=== PATIENT | female | born 1970 | race Caucasian/White ===

== ENCOUNTER 2017-08-27 16:18 | Emergency (ER) | payer BC, OTHER ==
[~2017-08-27] VITALS: Ht 167.6 cm; Wt 110.2 kg
[2017-08-27] MEDS ORDERED: MORPHINE SULFATE 2 MG/ML SYR IV STA (18:22)
[2017-08-27] MEDS ORDERED: ONDANSETRON HCL INJ 2 MG/ML VIAL IV STA (18:22)
[2017-08-27 18:30] LABS: BASOPHILS % 0.4 % (0.0-1.0); EOSINOPHILS # (AUTO) 0.2 (0.0-0.4); EOSINOPHILS % 2.5 % (0.0-6.0); HEMATOCRIT 36.4 % (34.2-44.1); HEMOGLOBIN 12.3 g/dL (12.0-16.0); LYMPHOCYTES # (AUTO) 3.1 (1.0-3.2); LYMPHOCYTES % 34.5 % (18.0-39.1); MEAN CORPUSCULAR HEMOGLOBIN 30.4 pg (28-32); MEAN CORPUSCULAR HGB CONC 33.8 g/dL (31-35); MEAN CORPUSCULAR VOLUME 90.1 fL (81-99); MONOCYTES # (AUTO) 0.5 (0.2-0.8); MONOCYTES % 5.6 % (4.4-11.3); NEUTROPHILS # (AUTO) 5.1 (2.1-6.9); NEUTROPHILS % 56.6 % (38.7-80.0); PLATELET COUNT 364 x10e3/uL (140-360); RED BLOOD COUNT 4.04 x10e6/uL (3.6-5.1); RED CELL DISTRIBUTION WIDTH 13.9 % (11.7-14.4)
[2017-08-27] MEDS ORDERED: SODIUM CHLORIDE 0.9% 1000ML 1,000 ML IV SCH (18:30)
[2017-08-27 18:33] LABS: CLARITY,URINE SL CLOUDY (CLEAR); COLOR,URINE YELLOW (YELLOW); KETONES,URINE TRACE (NEGATIVE); LEUKOCYTE ESTERASE ,URINE NEGATIVE (NEGATIVE); NITRITE,URINE NEGATIVE (NEGATIVE); PROTEIN,URINE DIPSTICK 1+ (NEGATIVE); URINE UROBILINOGEN 0.2 mg/dL (0.2 - 1)
[2017-08-27 18:34] LABS: BILIRUBIN,URINE NEGATIVE (NEGATIVE)
[2017-08-27 18:44] LABS: ALANINE AMINOTRANSFERASE 48 IU/L (0-55); ALBUMIN 3.5 g/dL (3.5-5.0); ALBUMIN/GLOBULIN RATIO 0.9 (0.8-2.0); ALKALINE PHOSPHATASE 78 IU/L (40-150); AMYLASE 39 U/L (25-125); ANION GAP 12.4 mmol/L (8-16); BLOOD UREA NITROGEN 6 mg/dL (7-26); BUN/CREATININE RATIO 7 (6-25); CALCIUM 9.1 mg/dL (8.4-10.2); CARBON DIOXIDE 28 mmol/L (22-29); CHLORIDE 103 mmol/L (98-107); CREATININE, SERUM 0.84 mg/dL (0.57-1.11); EST GLOMERULAR FILTRATION RATE > 60 ML/MIN (60-); GLUCOSE 143 mg/dL (74-118); LIPASE 21 U/L (8-78); POTASSIUM 3.4 mmol/L (3.5-5.1); SODIUM 140 mmol/L (136-145)
[2017-08-27 18:45] LABS: BACTERIA,URINE MODERATE /HPF; EPITHELIAL CELLS,URINE MANY /LPF; MUCUS,URINE MANY (RARE)
[2017-08-27] MEDS ORDERED: SODIUM CHLORIDE 0.9% 50ML 50 ML ONE (20:00)
[2017-08-27] MEDS ORDERED: IOPAMIDOL 370 MG/ML 200 ML INFUS..BTL INJ ONE (20:01)
--- NOTE | 2017-08-27 20:44 | Diagnostic Imaging Report ---
CT Abdomen And Pelvis with Intravenous Contrast INDICATION: Right lower TECHNIQUE: Thin collimation axial images obtained from the diaphragm to the level of the pubic symphysis following the uneventful administration of 100 cc of low osmolar, nonionic intravenous contrast. RADIATION DOSE: Total DLP: 845.8 mGy*cm Estimated effective dose: (DLP x 0.015 x size factor) mSv CTDIvol has been reviewed. It is below the limits set by the Radiation Protocol Committee (RPC). COMPARISON: None. ABDOMEN FINDINGS: Lung Bases: Clear. The visualized portions of the mediastinum are normal.. Liver: Diffuse hypoattenuation consistent with steatosis. The right lobe measures 21 cm in length. No evidence for mass. Gallbladder: Absent. No biliary ductal dilatation. Pancreas: Normal attenuation without mass or ductal dilatation. Spleen: Normal in size. No evidence of mass.. Adrenal Glands: No evidence for mass. Kidneys: Right: Normal enhancement. No soft tissue mass. No hydronephrosis. Left: Normal enhancement. No soft tissue mass. No hydronephrosis. Lymph Nodes: No lymphadenopathy. Aorta: Normal in diameter PELVIS FINDINGS: Bowel: Stomach: Normal. Small Bowel: Normal in caliber with normal wall thickness. Large Bowel: A few scattered diverticula in the sigmoid colon. No associated inflammation. Mild to moderate amount of stool in the right colon. Appendix: Normal appendix. Bladder: Normal. The uterus is present and normal in morphology. No adnexal mass. No free fluid or fluid collection. Bones: Unremarkable for age. IMPRESSION: 1. Hepatic steatosis and hepatomegaly. 2. Cholecystectomy. Normal biliary tree. 3. Diverticulosis coli. No evidence for bowel obstruction or inflammation. Normal appendix. Signed by: Dr. Cole Elena MD on 08/27/2017 8:41 PM
== END 2017-08-27 22:09 | disposition home or self-care (01) ==
LOC: ER 16:18
DX: R10.31 Right lower quadrant pain (principal); R11.0 Nausea; R19.7 Diarrhea, unspecified; K59.00 Constipation, unspecified
CPT/HCPCS: 36415; 74177; 80053; 81001; 82150; 83605; 83690; 84702; 85025; 93005; 99284; J2270; J2405; J7030; Q9967

== ENCOUNTER 2018-09-11 20:24 | Emergency (ER) | payer OTHER ==
[~2018-09-11] VITALS: Ht 167.6 cm; Wt 110.2 kg
--- OUTSIDE RECORDS SUMMARY | 2018-09-11 20:27 | XMS REPORT ---
Author [facility] Address Unknown Phone Unavailable Care Team Providers Care Policeman Name Role Phone Cindy BROWNE Unavailable Unavailable Payers Payer Name Policy Type Policy Number Effective Date Expiration Date Problems This patient has no known problems. Allergies, Adverse Reactions, Alerts Allergy Name Allergy Type Status Severity Reaction(s) Onset Date Inactive Date Treating Clinician Comments hydrocodone bit DA Active U 2016-07-17 00:00:00 acetaminophen DA Active U 2016-07-17 00:00:00 Medications This patient has no known medications. Results Test Description Test Time Test Comments Text Results Atomic Results Result Comments SURGICAL SPECIMENS 2018-09-11 09:48:00 RUN DATE: 09/11/18 [facility] *LIVE* PAGE 1 RUN TIME: 947 Specimen Inquiry RUN USER: INTERFACE PATIENT: TESHA REEVES LOC: MIGDALIA #: [id number] AGE/SX: 47/F ROOM: [facility] RE09/08/18REG DR: Estrellita Paris : 74 BED: 1 DIS: 09/09/18 STATUS: DIS Lissy TLOC: SPEC #: [id number] RECD: 09/09/18 STATUS: SOUCindy RE #: [id number] JUANITO: 09/09/[address]: Estrellita Paris MD ENTERED: 09/11/18 SP TYPE: SURG SPEC OTHR DR: No Primary or Family PhysicianORDERED: GM LEVEL 4 CODES: [id number] - UTERUS, NOS COPIES TO: No Primary or Family Physician Estrellita Paris MD [address] [place] [address] PROCEDURES: GM LEVEL 4 (Incomplete) TISSUES: 1. UTERUS, NOS - Uterus, cervix, bilateral tubes and ovar FINAL DIAGNOSIS Cervix uteri: Chronic cervicitis, squamous metaplasia, nabothian cysts. Endometrium: Proliferative phase. Corpus uteri: Leiomyomata, fibrous serosal adhesions. Adnexa, bilateral: Fibrous adhesions; small serous cysts. GROSS AND MICROSCOPIC GROSS EXAMINATION: Received the specimen as designated above and it consists of a uterus with attached left adnexa and a ovary and tube that weighs 264 g together. The ovary measures 3.5 x 4 x 1.5 cm (A)-(B), attached left ovary 2.7 cm, left tube 4.5 x 1.4 cm, uterus 11.7 x 8.5 x 7 cm, endometrium 0.4 cm, myometrium 2.9 cm with multiple randolph- white nodules measure up to 1.1 cm. (C)-(I). MICROSCOPIC EXAMINATION: The ectocervical mucosa has normal maturation. The endocervical mucosa has nabothian cysts, areas of squamous metaplasia and associated chronic inflammation. The endometrial glands are tubular and the stroma is cellular with mitosis in both the glands and the stroma. The myometrial nodule(s) are composed of bundles of smooth muscle cells CONTINUED ON NEXT PAGE RUN DATE: 09/11/18 [facility] *LIVE* PAGE 2 RUN TIME: 947 Specimen Inquiry RUN USER: INTERFACE SPEC #: [id number] PATIENT: TESHA REEVES #[id number] (Continued) GROSS AND MICROSCOPIC (Continued) with no significant nuclear atypia or mitotic activity. The serosa shows fibrous adhesions. The bilateral adnexa reveal fibrous adhesions and small serous cysts. POST-OP DIAGNOSIS Abnormal uterine bleeding, fibroids, pelvic pain PRE-OP DIAGNOSIS Abnormal uterine bleeding, fibroids, pelvic pain---- Signed SIGNATURE ON FILE Nica Beltran MD 09/11/18 0948 END OF REPORT VITAMIN B12 2018-09-11 04:07:00 VITAMIN B12 (test code=VITB12) 593 pg/mL 193-986 [id number] 04:07:00* Test Item Value Reference Range Comments TESTOSTERONE (test code=TEST) <3 ng/dL 8-48 Performed At: [facility] [place] [address] [id number] Gee MD Ph:[phone] VITAMIN D [id number] 04:07:00* Test Item Value Reference Range Comments VITAMIN D 25-HYDROXY (test code=VITD25) 26.4 ng/mL 30-100 [id number] 04:07:00* Test Item Value Reference Range Comments ESTRADIOL (test code=ESTRA) 12.0 pg/mL () Adult Female: Follicular phase 12.5 - 166.0 Ovulation phase 85.8 - 498.0 Luteal phase 43.8 - 211.0 Postmenopausal <6.0 - 54.7 1st trimester 215.0 - >4300.0 Girls (1-10 years) 6.0 - 27.0Roche ECLIA methodologyPerformed At: [facility] [address] [id number] Gee MD Ph:[phone] FOLLICLE STIMULATING [id number] 04:07:00* Test Item Value Reference Range Comments FOLLICLE STIMULATING HORMONE (test code=FSH) 13.4 mIU/mL () Adult Female: Follicular phase 3.5 - 12.5 Ovulation phase 4.7 - 21.5 Luteal phase 1.7 - 7.7 Postmenopausal 25.8 - 134.8Performed At: [address] [id number] Gee MD Ph:[phone] LUTEINIZING [id number] 04:07:00* Test Item Value Reference Range Comments LUTEINIZING HORMONE (test code=LH) 17.0 mIU/mL () Adult Female: Follicular phase 2.4 - 12.6 Ovulation phase 14.0 - 95.6 Luteal phase 1.0 - 11.4 Postmenopausal 7.7 - 58.5Performed At: [address] [id number] Gee MD Ph:[phone] VITAMIN [id number] 16:28:00* Test Item Value Reference Range Comments VITAMIN B12 (test code=VITB12) 593 pg/mL 193-986 [id number] 16:28:00* Test Item Value Reference Range Comments TESTOSTERONE (test code=TEST) VITAMIN D [id number] 16:28:00* Test Item Value Reference Range Comments VITAMIN D 25-HYDROXY (test code=VITD25) 26.4 ng/mL 30-100 VITAMIN [id number] 16:14:00* Test Item Value Reference Range Comments VITAMIN B12 (test code=VITB12) pg/mL 193-986 [id number] 16:14:00* Test Item Value Reference Range Comments TESTOSTERONE (test code=TEST) VITAMIN D 37-[id number] 16:14:00* Test Item Value Reference Range Comments VITAMIN D 25-HYDROXY (test code=VITD25) 26.4 ng/mL 30-100 HGBA1C%2018-09-09 16:01:00* Test Item Value Reference Range Comments HGBA1C% (test code=HGBA1C%) 5.5 %A1C 4.8-6.0 BASIC METABOLIC [id number] 11:23:00* Test Item Value Reference Range Comments SODIUM (test code=NA) 138 mEq/L 134-147 POTASSIUM (test code=K) 3.6 mEq/L 3.4-5.0 CHLORIDE (test code=CL) 106 mEq/L 100-108 CARBON DIOXIDE (test code=CO2) 26 mEq/L 21-33 ANION GAP (test code=GAP) 10 0-20 GLUCOSE (test code=GLU) 187 mg/dL 70-110 BLOOD UREA NITROGEN (test code=BUN) 10 mg/dL 7-18 GLOMERULAR FILTRATION RATE (test code=GFR) 67.7 95-105 Units of measure=ml/min/1.73 m2 CREATININE (test code=CREAT) 0.9 mg/dL 0.6-1.3 CALCIUM (test code=CA) 7.5 mg/dL 8.0-10.5 CBC W/AUTO [id number] 11:14:00* Test Item Value Reference Range Comments WHITE BLOOD CELL (test code=WBC) 13.41 x10 3/uL 4.5-11.0 RED BLOOD CELL (test code=RBC) 3.02 x10 6/uL 3.54-5.02 HEMOGLOBIN (test code=HGB) 9.3 g/dL 11.0-15.0 HEMATOCRIT (test code=HCT) 28.1 % 33.0-45.0 MEAN CELL VOLUME (test code=MCV) 93.0 fL 81.0-99.0 MEAN CELL HGB (test code=MCH) 30.8 pg 27.0-33.0 MEAN CELL HGB CONCETRATION (test code=MCHC) 33.1 g/dL 33.0-37.0 RED CELL DISTRIBUTION WIDTH CV (test code=RDW) 13.0 % 11.5-14.5 RED CELL DISTRIBUTION WIDTH SD (test code=RDW-SD) 43.8 fL 37.0-54.0 PLATELET COUNT (test code=PLT) 328 x10 3/uL 150-400 MEAN PLATELET VOLUME (test code=MPV) 9.8 fL 7.0-9.0 NEUTROPHIL % (test code=NT%) 67.7 % 56.0-77.0 IMMATURE GRANULOCYTE % (test code=IG%) 0.7 % 0.0-2.0 LYMPHOCYTE % (test code=LY%) 25.3 % 14.0-32.0 MONOCYTE % (test code=MO%) 6.2 % 4.8-9.0 EOSINOPHIL % (test code=EO%) 0.0 % 0.3-3.7 BASOPHIL % (test code=BA%) 0.1 % 0.0-2.0 NUCLEATED RBC % (test code=NRBC%) 0.0 % 0-0 NEUTROPHIL # (test code=NT#) 9.08 x10 3/uL 2.0-7.6 IMMATURE GRANULOCYTE # (test code=IG#) 0.09 x10 3/uL 0.00-0.03 LYMPHOCYTE # (test code=LY#) 3.39 x10 3/uL 1.0-3.8 MONOCYTE # (test code=MO#) 0.83 x10 3/uL 0.1-0.8 EOSINOPHIL # (test code=EO#) 0.00 x10 3/uL 0.0-0.2 BASOPHIL # (test code=BA#) 0.02 x10 3/uL 0.0-0.2 NUCLEATED RBC # (test code=NRBC#) 0.00 x10 3/uL 0.0-0.1 MANUAL DIFF REQUIRED (test code=MDIFF) NO COMPREHENSIVE METABOLIC [id number] 15:03:00* Test Item Value Reference Range Comments SODIUM (test code=NA) 141 mEq/L 134-147 POTASSIUM (test code=K) 3.6 mEq/L 3.4-5.0 CHLORIDE (test code=CL) 106 mEq/L 100-108 CARBON DIOXIDE (test code=CO2) 30 mEq/L 21-33 ANION GAP (test code=GAP) 9 0-20 GLUCOSE (test code=GLU) 102 mg/dL 70-110 BLOOD UREA NITROGEN (test code=BUN) 7 mg/dL 7-18 GLOMERULAR FILTRATION RATE (test code=GFR) 90.5 95-105 Units of measure=ml/min/1.73 m2 CREATININE (test code=CREAT) 0.7 mg/dL 0.6-1.3 TOTAL PROTEIN (test code=PROT) 8.0 g/dL 6.4-8.2 ALBUMIN (test code=ALB) 3.50 g/dL 3.4-5.0 CALCIUM (test code=CA) 8.9 mg/dL 8.0-10.5 BILIRUBIN TOTAL (test code=BILT) 0.20 mg/dL 0.0-1.0 SGOT/AST (test code=AST) 56 IUnit/L 15-37 SGPT/ALT (test code=ALT) 54 IUnit/L 15-65 ALKALINE PHOSPHATASE TOTAL (test code=ALKP) 86 IUnit/L 20-125 HCG SERUM [id number] 15:03:00* Test Item Value Reference Range Comments HCG SERUM QUAL (test code=HCGQL) SERUM NEGATIVE NEGATIVE COMPREHENSIVE METABOLIC [id number] 14:54:00* Test Item Value Reference Range Comments SODIUM (test code=NA) 141 mEq/L 134-147 POTASSIUM (test code=K) 3.6 mEq/L 3.4-5.0 CHLORIDE (test code=CL) 106 mEq/L 100-108 CARBON DIOXIDE (test code=CO2) 30 mEq/L 21-33 ANION GAP (test code=GAP) 9 0-20 GLUCOSE (test code=GLU) 102 mg/dL 70-110 BLOOD UREA NITROGEN (test code=BUN) 7 mg/dL 7-18 GLOMERULAR FILTRATION RATE (test code=GFR) 90.5 95-105 Units of measure=ml/min/1.73 m2 CREATININE (test code=CREAT) 0.7 mg/dL 0.6-1.3 TOTAL PROTEIN (test code=PROT) g/dL 6.4-8.2 ALBUMIN (test code=ALB) 3.50 g/dL 3.4-5.0 CALCIUM (test code=CA) 8.9 mg/dL 8.0-10.5 BILIRUBIN TOTAL (test code=BILT) mg/dL 0.0-1.0 SGOT/AST (test code=AST) 56 IUnit/L 15-37 SGPT/ALT (test code=ALT) 54 IUnit/L 15-65 ALKALINE PHOSPHATASE TOTAL (test code=ALKP) IUnit/L 20-125 HCG SERUM [id number] 14:54:00* Test Item Value Reference Range Comments HCG SERUM QUAL (test code=HCGQL) SERUM NEGATIVE NEGATIVE PROTHROMBIN [id number] 14:44:00* Test Item Value Reference Range Comments PROTHROMBIN TIME PATIENT (test code=PTP) 11.3 SECONDS 9.3-12.9 INTERNATIONAL NORMAL RATIO (test code=INR) 1.0 0.8-1.2 TARGET INR BY INDICATION Indication INR1. Prophylaxis of venous thrombosis 2.0 - 3.0 (orthopedic surgery), Prophylaxis of venous thrombosis (other than high-risk surgery), Treatment of Deep Vein Thrombosis/Pulmonary Embolism, Prevention of systemic embolism - Tissue heart valves, Acute Myocardial Infarction (to prevent systemic embolism), Valvular heart disease, Atrial Fibrillation, Bileaflet mechanical valve in aortic position.2. Mechanical prosthetic valves (high risk), 2.5 - 3.5 Presence of Lupus Anticoagulant or Antiphospholipid Antibodies, Prevention of systemic embolism - Acute Myocardial Infarction (to prevent recurrent infarct). THROMBOPLASTIN TIME [id number] 14:44:00* Test Item Value Reference Range Comments THROMBOPLASTIN TIME PARTIAL (test code=PTT) 32.5 Seconds 25.0-39.5 Therapeutic Range: 50.4 - 88.3 Seconds Effective 06/08/2018 COMPREHENSIVE METABOLIC [id number] 14:42:00* Test Item Value Reference Range Comments SODIUM (test code=NA) mEq/L 134-147 POTASSIUM (test code=K) mEq/L 3.4-5.0 CHLORIDE (test code=CL) mEq/L 100-108 CARBON DIOXIDE (test code=CO2) mEq/L 21-33 ANION GAP (test code=GAP) 0-20 GLUCOSE (test code=GLU) mg/dL 70-110 BLOOD UREA NITROGEN (test code=BUN) mg/dL 7-18 GLOMERULAR FILTRATION RATE (test code=GFR) 95-105 CREATININE (test code=CREAT) mg/dL 0.6-1.3 TOTAL PROTEIN (test code=PROT) g/dL 6.4-8.2 ALBUMIN (test code=ALB) g/dL 3.4-5.0 CALCIUM (test code=CA) mg/dL 8.0-10.5 BILIRUBIN TOTAL (test code=BILT) mg/dL 0.0-1.0 SGOT/AST (test code=AST) IUnit/L 15-37 SGPT/ALT (test code=ALT) IUnit/L 15-65 ALKALINE PHOSPHATASE TOTAL (test code=ALKP) IUnit/L 20-125 HCG SERUM [id number] 14:42:00* Test Item Value Reference Range Comments HCG SERUM QUAL (test code=HCGQL) SERUM NEGATIVE NEGATIVE CBC W/AUTO [id number] 14:25:00* Test Item Value Reference Range Comments WHITE BLOOD CELL (test code=WBC) 8.05 x10 3/uL 4.5-11.0 RED BLOOD CELL (test code=RBC) 4.23 x10 6/uL 3.54-5.02 HEMOGLOBIN (test code=HGB) 13.0 g/dL 11.0-15.0 HEMATOCRIT (test code=HCT) 38.1 % 33.0-45.0 MEAN CELL VOLUME (test code=MCV) 90.1 fL 81.0-99.0 MEAN CELL HGB (test code=MCH) 30.7 pg 27.0-33.0 MEAN CELL HGB CONCETRATION (test code=MCHC) 34.1 g/dL 33.0-37.0 RED CELL DISTRIBUTION WIDTH CV (test code=RDW) 12.5 % 11.5-14.5 RED CELL DISTRIBUTION WIDTH SD (test code=RDW-SD) 40.7 fL 37.0-54.0 PLATELET COUNT (test code=PLT) 362 x10 3/uL 150-400 MEAN PLATELET VOLUME (test code=MPV) 9.6 fL 7.0-9.0 NEUTROPHIL % (test code=NT%) 43.3 % 56.0-77.0 IMMATURE GRANULOCYTE % (test code=IG%) 0.4 % 0.0-2.0 LYMPHOCYTE % (test code=LY%) 47.6 % 14.0-32.0 MONOCYTE % (test code=MO%) 5.6 % 4.8-9.0 EOSINOPHIL % (test code=EO%) 2.2 % 0.3-3.7 BASOPHIL % (test code=BA%) 0.9 % 0.0-2.0 NUCLEATED RBC % (test code=NRBC%) 0.0 % 0-0 NEUTROPHIL # (test code=NT#) 3.49 x10 3/uL 2.0-7.6 IMMATURE GRANULOCYTE # (test code=IG#) 0.03 x10 3/uL 0.00-0.03 LYMPHOCYTE # (test code=LY#) 3.83 x10 3/uL 1.0-3.8 MONOCYTE # (test code=MO#) 0.45 x10 3/uL 0.1-0.8 EOSINOPHIL # (test code=EO#) 0.18 x10 3/uL 0.0-0.2 BASOPHIL # (test code=BA#) 0.07 x10 3/uL 0.0-0.2 NUCLEATED RBC # (test code=NRBC#) 0.00 x10 3/uL 0.0-0.1 MANUAL DIFF REQUIRED (test code=MDIFF) NO - XR CHEST 2 [id number] 13:51:00 FAX: Devyn Siddiqi- [phone] [place]: St: PRE FAX: Estrellita Swift [phone] Name: TESHA REEVES [facility] : 1970 Age/S: 47/F [address] [place] [address] Unit #: [id number] Loc: [place] [address] Phys: Devyn Rollins Acct: [id number] Dis Date: Status: PRE [facility] [place]ONE #: [phone] Exam Date: 09/07/2018 1352 FAX #: [phone] Reason: PRE-OP TLH EXAMS: CPT CODE: [id number] XR CHEST 2 V 40218 CHEST RADIOGRAPHS - PA AND LATERAL: COMPARISON: None CLINICAL HISTORY: PRE-OP TLH The cardiopericardial silhouette is within normal limits. Lungs are clear. No vascular congestion or pneumothorax. IMPRESSION: No acute pulmonary abnormality. at 1350 Reported and signed by: Zane Anton M.D. CC: Devyn Paris MD Technologist: Morena Goodrich, RT(R) Trnwvfarshad Date/Time/By: 09/07/2018 (6598) : By: [email or web address] Orig Print D/T: S: 09/07/2018 (2023) PAGE [address] ABDOMEN/PELVIS [id number] 20:38:00 [place] [address] Patient Name: TESHA REEVES MR #: [id number] : 1970 Age/Sex: 46/F Req #: [id number] Adm Physician: Ordered by: KUMAR PEREZ NURSE SUBSTANCE ABUSE Report #: [id number] Location: ER Room/Bed: Procedure: [id number] CT/CT ABDOMEN/PELVIS W Exam Date: 08/27/17 Exam Time: 1944 ST ATUS: Signed CT Abdomen And Pelvis with Intravenous Contrast INDICATION: Right lower TECHNIQUE: Thin collimation axial images obtained from the franklin phragm to the level of the pubic symphysis following the uneventful administra tion of 100 cc of low osmolar, nonionic intravenous contrast. RADIATION DOSE: Total DLP: 845.8 mGy*cm Estimated effective dose: (DLP x 0. 015 x size factor) mSv CTDIvol has been reviewed. It is below the limits set by the Radiation Protocol Committee (RPC). COMPARISON: None. AB DOMEN FINDINGS: Lung Bases: Clear. The visualized portions of the mediasti num are normal.. Liver: Diffuse hypoattenuation consistent with steatosis. The right lobe measures 21 cm in length. No evidence for mass. Gallbladd er: Absent. No biliary ductal dilatation. Pancreas: Normal attenuation with out mass or ductal dilatation. Spleen: Normal in size. No evidence of mass .. Adrenal Glands: No evidence for mass. Kidneys: Right: Normal enhancement. No soft tissue mass. No hydronephrosis. Left: Normal enhanc ement. No soft tissue mass. No hydronephrosis. Lymph Nodes: No lymphadeno roman. Aorta: Normal in diameter PELVIS FINDINGS: Bowel: St omach: Normal. Small Bowel: Normal in caliber with normal wall thickness. Large Bowel: A few scattered diverticula in the sigmoid colon. No associated inflammation. Mild to moderate amount of stool in the right colon. Appendix: N ormal appendix. Bladder: Normal. The uterus is present and normal in m orphology. No adnexal mass. No free fluid or fluid collection. Bones: Unremarkable for age. IMPRESSION: 1. Hepatic steatosis and hepatomeg guru. 2. Cholecystectomy. Normal biliary tree. 3. Diverticulosis coli. No e vidence for bowel obstruction or inflammation. Normal appendix. Signed by : Dr. Cheri Elena MD on 08/27/2017 8:41 PM Dictated By: CHERI SANCHES MD 40 Trans cribed By: FORTUNATO on 08/27/172040 COPY TO: KUMAR PEREZ NP
--- NOTE | 2018-09-11 22:13 | Diagnostic Imaging Report ---
EXAMINATION: Head CT without contrast. HISTORY:Headache, dizziness and vomiting. COMPARISON:None. TECHNIQUE: Multidetector axial images were obtained from the foramen magnum to the vertex without contrast. The images were reconstructed using brain and bone algorithms. Thin section brain images were reformatted into coronal and sagittal planes. Dose modulation, iterative reconstruction, and/or weight based adjustment of the mA/kV was utilized to reduce the radiation dose to as low as reasonably achievable. Intravenous contrast: None IMAGE QUALITY: Acceptable. FINDINGS: Skull/scalp: No lytic or blastic. lesions. No surgical changes. Parenchyma: No abnormal density. No acute hemorrhage, mass or acute major vascular territorial infarct. Arteries: No density suggestive of thrombosis. Dural sinuses: No abnormal density suggestive of thrombosis. Ventricles: No hydrocephalus or displacement. Extra-axial spaces: No abnormal density. Brain volume: Normal for age. Craniocervical junction: No mass, Chiari malformation, or basilar invagination. Sella: No mass. Paranasal/mastoid sinuses: Imaged portions unremarkable. IMPRESSION: No intracranial abnormality. Signed by: Dr. Shila Young M.D. on 09/11/2018 10:09 PM
[2018-09-11 22:29] LABS: BASOPHILS # (AUTO) 0.1 (0.0-0.1); BASOPHILS % 0.4 % (0.0-1.0); EOSINOPHILS # (AUTO) 0.3 (0.0-0.4); EOSINOPHILS % 2.9 % (0.0-6.0); HEMATOCRIT 26.9 % (34.2-44.1); HEMOGLOBIN 8.8 g/dL (12.0-16.0); LYMPHOCYTES # (AUTO) 4.9 (1.0-3.2); LYMPHOCYTES % 41.6 % (18.0-39.1); MEAN CORPUSCULAR HEMOGLOBIN 30.4 pg (28-32); MEAN CORPUSCULAR HGB CONC 32.7 g/dL (31-35); MEAN CORPUSCULAR VOLUME 93.1 fL (81-99); MONOCYTES # (AUTO) 0.6 (0.2-0.8); MONOCYTES % 5.2 % (4.4-11.3); NEUTROPHILS # (AUTO) 5.8 (2.1-6.9); NEUTROPHILS % 49.1 % (38.7-80.0); PLATELET COUNT 325 x10e3/uL (140-360); RED BLOOD COUNT 2.89 x10e6/uL (3.6-5.1); RED CELL DISTRIBUTION WIDTH 13.2 % (11.7-14.4)
[2018-09-11 22:32] LABS: BILIRUBIN,URINE NEGATIVE (NEGATIVE); CLARITY,URINE SL CLOUDY (CLEAR); COLOR,URINE RED (YELLOW); KETONES,URINE NEGATIVE (NEGATIVE); LEUKOCYTE ESTERASE ,URINE MODERATE (NEGATIVE); NITRITE,URINE NEGATIVE (NEGATIVE); PROTEIN,URINE DIPSTICK TRACE (NEGATIVE); URINE UROBILINOGEN 0.2 mg/dL (0.2 - 1)
[2018-09-11] MEDS: METOCLOPRAMIDE HCL 10 MG/2ML VIAL IV ONE (22:32)
[2018-09-11] MEDS: KETOROLAC TROMETHAMINE 30 MG/ML VIAL IV STA (22:34)
[2018-09-11] MEDS: SODIUM CHLORIDE 0.9% 1000ML 1,000 ML IV STA (22:36)
[2018-09-11 22:40] LABS: BACTERIA,URINE RARE /HPF; EPITHELIAL CELLS,URINE FEW /LPF; PREGNANCY TEST, URINE NEGATIVE (NEGATIVE); RBC,URINE >50 /HPF (0-5)
[2018-09-11 22:46] LABS: ALANINE AMINOTRANSFERASE 46 IU/L (0-55); ALBUMIN 3.2 g/dL (3.5-5.0); ALBUMIN/GLOBULIN RATIO 0.9 (0.8-2.0); ALKALINE PHOSPHATASE 65 IU/L (40-150); ANION GAP 13.7 mmol/L (8-16); BLOOD UREA NITROGEN 7 mg/dL (7-26); BUN/CREATININE RATIO 9 (6-25); CALCIUM 8.5 mg/dL (8.4-10.2); CARBON DIOXIDE 28 mmol/L (22-29); CHLORIDE 101 mmol/L (98-107); CREATININE, SERUM 0.77 mg/dL (0.57-1.11); EST GLOMERULAR FILTRATION RATE > 60 ML/MIN (60-); GLUCOSE 96 mg/dL (74-118); POTASSIUM 3.7 mmol/L (3.5-5.1); SODIUM 139 mmol/L (136-145)
[2018-09-11] MEDS ORDERED: ONDANSETRON HCL INJ 2MG/ML 2ML 2 MG/ML VIAL IV STA (22:54)
[2018-09-11] MEDS ORDERED: MORPHINE SULFATE INJ 4 MG/ML INJ 1ML IV ONE (23:30)
[2018-09-12 00:12] VITALS: BP 120/74
== END 2018-09-12 00:14 | disposition home or self-care (01) ==
LOC: ER 20:24
DX: G43.019 Migraine without aura, intractable, without status migrainosus (principal); D62 Acute posthemorrhagic anemia; Z98.890 Other specified postprocedural states
CPT/HCPCS: 36415; 70450; 80053; 81001; 81025; 85025; 87086; 87186; 99284; J1885; J2765; J7030

== ENCOUNTER → 2019-08-19 | Day surgery (SDC) | payer BC, OTHER ==
[2019-08-16 11:00] LABS: BASOPHILS # (AUTO) 0.1 (0.0-0.1); BASOPHILS % 0.7 % (0.0-1.0); EOSINOPHILS # (AUTO) 0.2 (0.0-0.4); EOSINOPHILS % 2.3 % (0.0-6.0); HEMATOCRIT 38.5 % (34.2-44.1); HEMOGLOBIN 12.9 g/dL (12.0-16.0); LYMPHOCYTES # (AUTO) 3.2 (1.0-3.2); LYMPHOCYTES % 44.1 % (18.0-39.1); MEAN CORPUSCULAR HEMOGLOBIN 30.9 pg (28-32); MEAN CORPUSCULAR HGB CONC 33.5 g/dL (31-35); MEAN CORPUSCULAR VOLUME 92.3 fL (81-99); MONOCYTES # (AUTO) 0.4 (0.2-0.8); MONOCYTES % 5.6 % (4.4-11.3); NEUTROPHILS # (AUTO) 3.4 (2.1-6.9); NEUTROPHILS % 46.9 % (38.7-80.0); PLATELET COUNT 291 x10e3/uL (140-360); RED BLOOD COUNT 4.17 x10e6/uL (3.6-5.1); RED CELL DISTRIBUTION WIDTH 13.2 % (11.7-14.4)
[~2019-08-19] MED LIST: ABILIFY5 MG PO; BUSPIRONE HCL5 MG PO; DIAZEPAM5 MG PO; EFFEXOR XR 3737.5 MG PO; ESTRADIOL1 MG PO; FAMOTIDINE20 MG PO; FENTANYL CITRATE/PF 100MCG/2 ML INJ ONE; HYOSCYAMINE 0.125 MG TAB ONE; KETAMINE HCL INJ 50 MG/ML 10 ML VIAL ONE; MIDAZOLAM HCL 2 MG/2 ML VIAL ONE; OMEPRAZOLE40 MG PO; PRO AIR INH; PROPOFOL IV EMULSION 10 MG/ML 20 ML VIAL ONE; TRAZODONE HCL100 MG PO; VALTREX500 MG PO
[2019-08-19 11:40] VITALS: BP 139/77
[2019-08-19 12:12] LABS: WBC,FECAL (FECAL LACTOFERRIN) NEGATIVE (NEGATIVE)
[2019-08-19 14:52] LABS: C DIFFICILE TOXIN A&B AMP PROB NEGATIVE (NEGATIVE)
--- NOTE | 2019-08-19 16:00 | Operative Report ---
DATE OF PROCEDURE: 08/19/2019 SURGEON: Ahmet Roth MD PROCEDURE: Colonoscopy with biopsies. INDICATIONS FOR COLONOSCOPY: Rectal bleeding, intermittent loose stools. MEDICATIONS: The patient was done under MAC, please see anesthesiologist's note. PROCEDURE IN DETAIL: With the patient in left lateral decubitus position, a flexible fiberoptic Olympus colonoscope was inserted into the rectum with ease and advanced all the way to the cecum. Mucosa overlying the cecum appeared to be within normal limits. The ileocecal valve was intubated and the scope was advanced into the terminal ileum. Biopsies were obtained. The scope was then withdrawn back into the colon. It was then withdrawn slowly, mucosa overlying the ascending appeared to be within normal limits. Approximately, an 8 mm ulcer was noted in the distal transverse colon, that was biopsied. Mild patchy inflammatory changes were noted in the left colon and the rectum, and random biopsies were obtained. The scope was then retroflexed into the distal rectum. Small internal hemorrhoids were noted, none of which was actively bleeding. The scope was then straightened out, it was subsequently withdrawn. The patient tolerated the procedure well. IMPRESSION: 1. Approximately, 8 mm ulcer distal transverse colon, biopsied. 2. Mild patchy left-sided colitis. 3. Proctitis, mild. 4. Internal hemorrhoids, none actively bleeding. PLAN: 1. Follow up histology. 2. Follow up stool studies. 3. Initiate Bentyl 10 mg one p.o. t.i.d. 4. VSL #3 one p.o. b.i.d. 5. Hydrocortisone 25 mg suppository b.i.d. x10 days and p.r.n. Ahmet Roth MD [facility] [place][id number] cc: Arnel Stevens DO
== END | disposition home or self-care (01) ==
LOC: OR 07:17
PROVIDERS: ATTEND Internal Medicine Gastroenterology
DX: K59.00 Constipation, unspecified (principal); K51.90 Ulcerative colitis, unspecified, without complications; K62.89 Other specified diseases of anus and rectum; K64.8 Other hemorrhoids; K21.9 Gastro-esophageal reflux disease without esophagitis; G47.33 Obstructive sleep apnea (adult) (pediatric); J44.9 Chronic obstructive pulmonary disease, unspecified; I48.0 Paroxysmal atrial fibrillation; F32.9 Major depressive disorder, single episode, unspecified; F41.9 Anxiety disorder, unspecified; F17.290 Nicotine dependence, other tobacco product, uncomplicated; Z88.6 Allergy status to analgesic agent; Z01.810 Encounter for preprocedural cardiovascular examination; Z01.812 Encounter for preprocedural laboratory examination; Z11.59 Encounter for screening for other viral diseases
CPT/HCPCS: 36415; 45380; 83630; 83993; 85025; 87045; 87177; 87328; 87493; 87635; 93005; J2250; J2704; J3010; 45378